=== PATIENT | female | born 1950 | race Caucasian/White ===

== ENCOUNTER 2020-11-01 12:57 | Outpatient (REF) | payer MEDICARE, SELFPAY ==
--- NOTE | 2020-11-01 | MM_ITS ---
EXAMINATION: MM SCREENING DIGITAL BREAST TOMOSYNTHESIS, BILATERAL CLINICAL INFORMATION: Screening. Asymptomatic. The lifetime risk of breast cancer based on the Tyrer-Cuzick Model is 8%. COMPARISON: Mammography: 10/26/2019, 07/06/2018, 03/24/2017, 02/21/2016 TECHNIQUE: Digital breast tomosynthesis is performed in both the craniocaudal and mediolateral oblique views along with computer-aided detection (CAD). Synthesized 2D images are generated from the tomosynthesis. FINDINGS: There are scattered areas of fibroglandular density (ACR BI-RADS breast composition Category b). There are no significant masses, abnormal calcifications, or other abnormalities. The bilateral prominent axillary nodes with abundant fatty amre are stable. The skin contours are smooth. No significant changes from prior studies. MM/MM tomosynthesis screening BI IMPRESSION: No significant changes from prior exams. ASSESSMENT: BI-RADS 2: Benign RECOMMENDATION: Routine annual mammography screening. This patient's information was entered into a reminder system with a target due date for their next mammogram.
== END 2020-11-01 12:58 | disposition home or self-care (01) ==
LOC: HO.MAMMO 12:57
PROVIDERS: PCP Internal Medicine; Visit Provider Internal Medicine
DX: Z12.31 Encounter for screening mammogram for malignant neoplasm of breast (principal)
CPT/HCPCS: 77063; 77067

== ENCOUNTER 2022-02-24 11:40 | Outpatient (REF) | payer MEDICARE, SELFPAY ==
--- NOTE | ~2022-02-24 | MM_ITS ---
EXAMINATION: MM SCREENING DIGITAL BREAST TOMOSYNTHESIS, BILATERAL CLINICAL INFORMATION: Screening. Asymptomatic. The lifetime risk of breast cancer based on the Tyrer-Cuzick Model is 8%. COMPARISON: Mammography: 11/01/2020, 09/26/2019, 07/06/2018 TECHNIQUE: Digital breast tomosynthesis is performed in both the craniocaudal and mediolateral oblique views along with computer-aided detection (CAD). Synthesized 2D images are generated from the tomosynthesis. FINDINGS: There are scattered areas of fibroglandular density (ACR BI-RADS breast composition Category b). There are no significant masses, abnormal calcifications, or other abnormalities. Parenchymal pattern is similar to prior studies. Small intramammary node again seen mid upper outer right breast. Bilateral axillary nodes stable. The skin contours are smooth. No significant changes. MM/MM tomosynthesis screening BI IMPRESSION: No mammographic evidence of malignancy. ASSESSMENT: BI-RADS 2: Benign RECOMMENDATION: Routine annual mammography screening. This patient's information was entered into a reminder system with a target due date for their next mammogram.
== END 2022-02-24 11:41 | disposition home or self-care (01) ==
LOC: HO.MAMMO 11:40
PROVIDERS: PCP Internal Medicine; Visit Provider Internal Medicine
DX: Z12.31 Encounter for screening mammogram for malignant neoplasm of breast (principal)
CPT/HCPCS: 77063; 77067

== ENCOUNTER 2023-06-25 15:08 | Outpatient (REF) | payer MEDICARE, SELFPAY | END 2023-06-25 15:09 | disposition home or self-care (01) | LOC: HO.MAMMO 15:08 | PROVIDERS: PCP Internal Medicine; Visit Provider Internal Medicine | DX: Z12.31 Encounter for screening mammogram for malignant neoplasm of breast (principal) | CPT/HCPCS: 77063; 77067 ==

== ENCOUNTER → 2023-06-25 15:30 | Outpatient (BNV) | payer MEDICARE, SELFPAY | PROVIDERS: PCP Internal Medicine; Visit Provider Radiology Diagnostic Radiology | DX: Z12.31 Encounter for screening mammogram for malignant neoplasm of breast (principal) | CPT/HCPCS: 77063; 77067 ==

== ENCOUNTER → 2023-07-20 10:31 | Outpatient (BNVA) | payer MEDICARE, SELFPAY | PROVIDERS: PCP Internal Medicine; Visit Provider Physician Assistant Surgical ==

== ENCOUNTER → 2023-08-18 10:56 | Outpatient (BNVA) | payer MEDICARE, SELFPAY | PROVIDERS: PCP Internal Medicine; Visit Provider Physician Assistant Surgical ==

== ENCOUNTER → 2023-08-20 08:10 | Outpatient (BNVA) | payer MEDICARE, SELFPAY | PROVIDERS: PCP Internal Medicine; Visit Provider Surgery ==

== ENCOUNTER 2023-12-14 09:19 | Day surgery (SDC) | payer MEDICARE, SELFPAY ==
[2023-12-10 13:35] VITALS: BMI 38.0
[2023-12-14 09:58] VITALS: BMI 36.9
[2023-12-14 10:06] VITALS: BP 161/87; PULSE 83; RESP 18; TEMP 36.7; O2SAT 95
[2023-12-14] MEDS: Lactated Ringers 1,000 ML 100 ML IVCONT (10:06)
--- NOTE | 2023-12-14 10:23 | MHC.SHP ---
Pre-Procedural Eval Section A - 24 Hr Update-Section A only Date of Service: 12/14/23 Section B - Complete if H&P > 30 days Chief Complaint: screening Details of Present Illness: see H&P no changes Relevant Family History (Specify if Yes): No Relevant Social History: None Present Medications: see Short Stay Collaborative assessment Medical History: No relevant PMH History of Previous Operations: No relevant previous surgery Allergies: Allergies Allergy/AdvReac Type Severity Reaction Status Date / Time No Known Allergies Allergy Verified 12/14/23 09:42 [No Known Allergies*] Review of Systems Sugical H&P ROS: Negative: Constitution, Cardiovascular, Respiratory, Neurological, Psychiatric, Hem-Onc, Allergic/Immunologic, Gastrointestinal, Genitourinary, Musculoskeletal, Integumentary, Endocrine and Eyes/Ears/Nose/Throat Exam Surgical H&P Exam: Normal: HEENT, Normal: Heart, Normal: Lungs, Normal: Extremities, Normal: Abdomen, Normal: Skin and Normal: Neurological Plan Diagnosis/Plan: Unchanged I have reviewed the history and physical and performed a pertinent physical examination on my patient. No changes have occurred unless specified. Time Spent With Patient Time: Total time managing care of this patient today ____ minutes.
[2023-12-14 10:58] VITALS: BP 111/63; PULSE 78; RESP 16; TEMP 36.5; O2SAT 97
[2023-12-14 11:13] VITALS: BP 130/72; PULSE 77; RESP 16; TEMP 36.1; O2SAT 96
--- NOTE | 2023-12-14 11:24 | OP_ITS ---
DATE OF SERVICE: 12/14/2023 SURGEON: Gabino Farooq MD INDICATIONS: Colon cancer screening. PREOPERATIVE DIAGNOSIS: POSTOPERATIVE DIAGNOSIS: PROCEDURE PERFORMED: Colonoscopy to the terminal ileum with biopsy. ESTIMATED BLOOD LOSS: COMPLICATIONS: ANESTHESIA: Monitored anesthesia care. ASSISTANTS: SPECIMENS: DESCRIPTION OF PROCEDURE: A history and physical was performed. The risks and benefits of the procedure were explained to the patient and informed consent was obtained. The patient was placed in the left lateral decubitus position. A digital rectal exam was performed and was found to be normal. The Olympus pediatric video colonoscope was introduced into the rectum and advanced to the cecum. The cecum was identified by transillumination, palpation, and identification of ileocecal valve. Examination was performed. The scope was removed. She tolerated the procedure well and was returned to the recovery area in stable condition. FINDINGS: The terminal ileum was briefly examined and appeared normal. The visualized colonic mucosa was within normal limits without evidence of masses or ulcers. A single polyp was identified and removed using a biopsy forceps. The polyp measured less than 5 mm and was located at 60 cm. No other polyps were seen. Retroflexed examination showed internal hemorrhoids. The quality of the prep was good. IMPRESSION: Colon polyp. RECOMMENDATION: Follow up the biopsy results. MD DAWOOD Wallace/HUBERTL / [id number]
== END 2023-12-14 11:49 | disposition home or self-care (01) ==
PROVIDERS: PCP Internal Medicine; Visit Provider Internal Medicine Gastroenterology
PROC: 0DJD8ZZ Inspection of Lower Intestinal Tract, Via Natural or Artificial Opening Endoscopic (ICD-10-PCS; CPT 45378; principal; 2023-12-14 10:50)
DX: Z12.11 Encounter for screening for malignant neoplasm of colon (principal); Z83.719 Family history of colon polyps, unspecified; D12.4 Benign neoplasm of descending colon; K64.8 Other hemorrhoids; I10 Essential (primary) hypertension; E78.5 Hyperlipidemia, unspecified; F41.9 Anxiety disorder, unspecified; Z79.82 Long term (current) use of aspirin; Z79.899 Other long term (current) drug therapy
CPT/HCPCS: 45380; 88305; J2704

== ENCOUNTER 2024-03-01 11:18 | Outpatient (REF) | payer MEDICARE, SELFPAY ==
--- NOTE | ~2024-03-01 | MM_ITS ---
EXAMINATION: BONE DENSITOMETRY CLINICAL INDICATION: Asymptomatic menopausal state. COMPARISON: Previous BD dated 12/05/2015 and baseline BD dated 09/14/2007. TECHNIQUE: Using a Trudev DXA System (software version: 13.1) manufactured by [employer], dual-energy x-ray absorptiometry was performed of the lumbar spine and left hip. The images are of good technical quality. Summary results are attached. FINDINGS: LEFT FEMUR, NECK: Current: BMD 0.985 g/cm2, Z-score 1.0, T-score -0.4, normal. Prior: BMD 0.953 g/cm2. Baseline: BMD 0.981 g/cm2. LEFT FEMUR, TOTAL: Current: BMD 1.037 g/cm2, Z-score 1.4, T-score 0.2, normal, 5.1% increase from previous, 2.4% decrease from baseline (<5% change is not significant). Prior: BMD 0.987 g/cm2. Baseline: BMD 1.062 g/cm2. AP SPINE L1-L4: Current: BMD 1.312 g/cm2, Z-score 2.2, T-score 1.1, normal, 7.5% increase from previous, 12.2% increase from baseline (<5% change is not significant). Prior: BMD 1.221 g/cm2. Baseline: BMD 1.169 g/cm2. IDENTIFIED RISK FACTORS: Menopause, history of fracture (adult). HISTORY OF FRACTURE: Other. Forearm, humerus, wrist. MEDICATIONS: Vitamin D. MM/XR DEXA axial skeleton IMPRESSION: 1. DIAGNOSIS: Normal bone density based on the lowest T-score value of -0.4 in the femoral neck applying World Health Organization criteria. 2. 10-YEAR FRACTURE RISK PREDICTION, FRAX: According to the guidelines, FRAX calculation should only be performed on patients in the osteopenia bone density category. Therefore, FRAX was not performed on this patient. 3. Treatment Recommendations: NOF guidelines recommend consideration for treatment in postmenopausal women and men age 50 and older presenting with the following: -A hip or vertebral (clinical or morphometric) fracture. -T-score less than or equal to -2.5 at the femoral neck or spine after appropriate evaluation to exclude secondary causes. -Low bone mass at the hip or spine and a 10-year fracture probability by FRAX of greater than or equal to 3% for hip fracture or greater than or equal to 20% for major osteoporotic fracture based on the [place] adapted WHO algorithm. 4. Other Recommendations: All treatment decisions require clinical judgment and consideration of individual patient factors, including patient preferences, comorbidities, previous drug use, risk factors not captured in the FRAX model (e.g. frailty, falls, vitamin D deficiency, increased bone turnover, interval significant decline in bone density) and possible under or overestimation of fracture risk by FRAX. FUTURE SCAN RECOMMENDATION: People with diagnosed cases of osteoporosis or at high risk for fracture should have regular bone mineral density tests. For patients eligible for Medicare, routine testing is allowed once every 2 years. The testing frequency can be increased to one year for patients who have rapidly progressing disease, those who are receiving or discontinuing medical therapy to restore bone mass, or have additional risk factors.
== END 2024-03-01 11:19 | disposition home or self-care (01) ==
LOC: HO.MAMMO 11:18
PROVIDERS: PCP Internal Medicine; Visit Provider Nurse Practitioner Adult Health
DX: Z13.820 Encounter for screening for osteoporosis (principal); Z78.0 Asymptomatic menopausal state
CPT/HCPCS: 77080

== ENCOUNTER 2025-01-03 12:33 | Outpatient (REF) | payer MEDICARE, SELFPAY ==
--- OUTSIDE RECORDS SUMMARY | 2025-01-03 12:51 | XMS_ITS ---
Author Organization [facility] Address [address] [place] [phone] Care Team Providers Care Water Chaser Name Role Phone Frederick Hutchins MD Primary Care Provider Gabino Hummel Jr [phone] ALLERGIES No Known Allergies REASON FOR VISIT dilated pancreatic and bile duct MEDICATIONS Medication SIG (Take, Route, Frequency, Duration) Notes Start Date End Date Status LORazepam 0.5 MG Oral for 15 as needed A ctive hydroCHLOROthiazide 25 MG Oral for 90 Active amLODIPine Besylate 5 MG Oral for 90 Active buPROPion HCl ER (XL) 150 MG Oral for 90 Active Atorvastatin Calcium 40 MG Oral for 90 Active Vitamin D 50 MCG (1999) 1 tablet Oral ly Once a day for 30 day(s) Active Aspirin 81 MG as directed Orally Active Citalopram Hydrobromide 20 MG Oral for 90 Active Losartan Potassium 50mg Active PROBLEMS Problem Type ICD Code Onset Dates Problem Status W/U Status Risk SNOMED Code Notes Problem Abnormal magnetic resonance cholangiopancreatography (MRCP) (R93.3) Active confirmed 119648403 VITAL SIGNS BMI 37.18 kg/m2 01/03/2025 Blood pressure systolic 111 mm Hg 01/03/20 25 Blood pressure diastolic 11 mm Hg 025 Height 64.5 in 01/03/2025 Weight 220 lbs 01/03/2025 Encounters Encounter Location Date Provider Diagnosis [facility] [address] [place] [phone] 01/03/2025 Gabino Farooq Jr Abnormal magnetic resonance cholangiopancreatography (MRCP) R93.3 ASSESSMENTS Encounter Date Diagnosis Assessment Notes Treatment Notes Treatment Clinical Notes 01/03/2025 Abnormal magnetic re sonance cholangiopancreatography (MRCP) (ICD-10 - R93.3) PLAN OF TREATMENT Pending Test Test Name Order Date LIVER PROFILE 01/03/2025 LIPASE 01/03/2025 CBC w/o DIFF 01/03/2025 PROTHROMBIN TIME (PT, INR) 01/03/2025 Future Test Test Name Order Date ERCP SPHINCTEROTOMY/PAPILLOTOMY 01/03/20 25 Next Appt Details Follow Up: 1 Year, Reason: Provider Name:Gabino daily , 01/23/2025 12:40:00 PM, [address] [place] [address] , [place], [place], [phone], Progress Notes * Examination Category Sub-Category Detail Notes General Examination GENERAL APPEARANCE: in no ac eli distress HEAD: normocephalic EYES: sclera non-icteric NECK/THYROID: no lymphadenopathy HEART: S1, S2 normal, no mu rmurs CHEST: normal shape and exp ansion LUNGS: clear to auscultatio n bilaterally ABDOMEN: soft, nontender, non distended, bowel sounds present, no organomegaly SKIN: anicteric EXTREMITIES: no clubbing, cyanosi s, or edema PSYCH: cognitive function i ntact ORAL CAVITY: mucosa moist
--- OUTSIDE RECORDS SUMMARY | 2025-01-03 12:52 | XMS_ITS | Patient Health Record ---
Author Organization [facility] Address [address] [place] [address] Care Team Providers Care Instructor Psychiatric Aide Name Role Phone Frederick Hutchins MD Primary Care Provider Gabino Hummel Jr Unavailable [phone] ALLERGIES No Known Allergies REASON FOR REFERRAL No Information MEDICATIONS Medication SIG (Take, Route, Frequency, Duration) Notes Start Date End Date Status Vitamin D 50 MCG (1999) 1 tablet Oral ly Once a day for 30 day(s) Active LORazepam 0.5 MG Oral for 15 as needed A ctive hydroCHLOROthiazide 25 MG Oral for 90 Active amLODIPine Besylate 5 MG Oral for 90 Active buPROPion HCl ER (XL) 150 MG Oral for 90 Active Atorvastatin Calcium 40 MG Oral for 90 Active Aspirin 81 MG as directed Orally Active Citalopram Hydrobromide 20 MG Oral for 90 Active Losartan Potassium 50mg Active IMMUNIZATIONS Vaccine Route Administration Date Status Comme nts Influenza Unknown 10/15/2023 Administered SOCIAL HISTORY Sex Assigned At : Social History Observation Description Sex Assigned At Unknown PROBLEMS Problem Type ICD Code Onset Dates Problem Status W/U Status Risk SNOMED Code Notes Problem Colon cancer screeni ng (Z12.11) Active confirmed 021643557 Problem Long-term use of asp irin therapy (Z79.82) Active confirmed 364671168 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) Active confirmed [id number] Problem Abnormal magnetic resonance cholangiopancreatography (MRCP) (R93.3) Active confirmed 936029004 VITAL SIGNS Blood pressure diastolic 11 mm Hg 01/03/2025 Height 64.5 in 01/03/2025 Blood pressure systolic 111 mm Hg 01/03/2025 Weight 220 lbs 01/03/2025 BMI 37.18 kg/m2 01/03/2025 Encounters Encounter Location Date Provider Diagnosis [facility] [address] [place] [address] 01/03/2025 Gabino Farooq Jr Abnormal magnetic resonance cholangiopancreatography (MRCP) R93.3 [facility] [address] [place] [address] 12/19/2024 Gabino Farooq Jr ASSESSMENTS Encounter Date Diagnosis Assessment Notes Treatment Notes Treatment Clinical Notes 01/03/2025 Abnormal magnetic re sonance cholangiopancreatography (MRCP) (ICD-10 - R93.3) PLAN OF TREATMENT Pending Test Test Name Order Date LIVER PROFILE 01/03/2025 LIPASE 01/03/2025 CBC w/o DIFF 01/03/2025 PROTHROMBIN TIME (PT, INR) 01/03/2025 Future Test Test Name Order Date COLONOSCOPY 12/09/2012 COLONOSCOPY 11/01/2023 ERCP SPHINCTEROTOMY/PAPILLOTOMY 01/03/20 Next Appt Details Provider Name:Gabino daily Jr, 01/23/2025 12:40:00 PM, [address] [facility] , [place], [place], [phone], Insurance Providers Payer Name Payer Address Payer Phone Subscriber Number Group Number Insured Name Patient Relationship to Insured Coverage Start Date Coverage End Date [facility] [address] [place] [phone] [id number] BILLIE YAN Self - patient is the insured MEDICAL (GENERAL) HISTORY Medical History History ICD Code Colonoscopy 12/08, tubular adenoma, follo wup p.r.n. Hyperlipidemia Hypertension Elevated BMI Anxiety Surgical History Surgery Date(Month/Year) section Repair of arm fracture
--- OUTSIDE RECORDS SUMMARY | 2025-01-03 12:52 | XMS_ITS ---
Author Organization [facility] Address [address] [place] [address] Care Team Providers Care Hazardous Materials Analyst Name Role Phone Frederick Hutchins MD Primary Care Provider Gabino Hummel Jr [phone] REASON FOR VISIT appt Encounters Encounter Location Date Provider Diagnosis [facility] [address] [place] [phone] 12/19/2024 Gabino Farooq Jr PLAN OF TREATMENT Next Appt Details Provider Name:Gabino daily Jr, 01/23/2025 12:40:00 PM, [address] [place] [address] , [place], [place], [phone],
--- OUTSIDE RECORDS SUMMARY | 2025-01-03 12:52 | XMS_ITS ---
Author Organization [facility] Address [address] [place] [address] Care Team Providers Care Pony Edger Name Role Phone Frederick Hutchins MD Primary Care Provider Gabino Hummel Jr [phone] REASON FOR VISIT pathology Encounters Encounter Location Date Provider Diagnosis [facility] [address] [place] [phone] 12/23/2023 Gabino Farooq Jr PLAN OF TREATMENT Next Appt Details Provider Name:Gabino daily Jr, 01/23/2025 12:40:00 PM, [address] [place] [address] , [place], [place], [phone],
[2025-01-03 13:50] LABS: Hematocrit 37.2 % (37.0-47.0); Hemoglobin 12.7 g/dl (12.0-16.0); Mean Corpuscular HGB Conc 34.1 g/dl (31.0-35.0); Mean Corpuscular Volume 99.5 fL (80.0-98.0); Mean Platelet Volume 10.4 fL (9.4-12.3); Platelet Count 247 X10*3/uL (160-400); Red Blood Count 3.74 X10*6/uL (4.20-5.50); Red Cell Distribution Width 12.2 % (11.0-16.0); White Blood Count 5.2 X10*3/uL (4.8-10.8)
[2025-01-03 13:55] LABS: INTERNATIONAL NORM RATIO 0.9 (0.9-1.1); Prothrombin Time 10.9 SEC (10.9-12.4)
[2025-01-03 14:32] LABS: Alanine Aminotransferase 32 U/L (0-31); Albumin Level 4.2 g/dL (3.5-5.0); Alkaline Phosphatase 62 U/L (39-117); Aspartate Amino Transferase 26 U/L (5-31); Bilirubin Total 0.5 mg/dL (0.0-1.0); Lipase 34 U/L (8-78); Total Protein 7.5 g/dL (6.5-8.0)
[2025-01-03 14:33] LABS: Bilirubin Direct 0.1 mg/dL (0.0-0.5)
== END 2025-01-03 12:34 | disposition home or self-care (01) ==
LOC: HO.LAB 12:33
PROVIDERS: PCP Internal Medicine; Visit Provider Internal Medicine Gastroenterology
DX: R93.3 Abnormal findings on diagnostic imaging of other parts of digestive tract (principal)
CPT/HCPCS: 36415; 80076; 83690; 85027; 85610

== ENCOUNTER 2025-01-23 09:56 | Day surgery (SDC) | payer MEDICARE, SELFPAY ==
--- OUTSIDE RECORDS SUMMARY | 2025-01-11 16:51 | XMS_ITS | Patient Health Record ---
Author Organization [facility] Address [address] [place] [address] Care Team Providers Care Photoengraving Sketch Maker Name Role Phone Frederick Hutchins MD Primary Care Provider Gabino Hummel Jr Unavailable [phone] ALLERGIES No Known Allergies RESULTS Component Value Reference Range Notes Complete Blood Count no Diff Reviewed date:01/04/2025 09:49:41 AM Interpretation: Performing Lab:[facility], [address] [place] [id number] Notes/Report: White Blood Count 5.2 4.8-10.8 X10*3/uL Red Blood Count 3.74 4.20-5.50 X10*6/uL Hemoglobin 12.7 12.0-16.0 g/dl Hematocrit 37.2 37.0-47.0 % Mean Corpuscular Volume 99.5 80.0-98.0 fL Mean Corpuscular Hemoglobin 34.0 27.0-33.0 pg Mean Corpuscular HGB Conc 34.1 31.0-35.0 g/dl Red Cell Distribution Width 12.2 11.0-16.0 % Platelet Count 247 160-400 X10*3/uL Mean Platelet Volume 10.4 9.4-12.3 fL NRBC Pct Auto 0.0 0.0-0.2 /100WBC NRBC Abs Auto 0.000 0.0-0.012 X10*3/uL Prothrombin Time INR Reviewed date:01/04/2025 09:49:35 AM Interpretation: Performing Lab:[address] [phone] Notes/Report: Prothrombin Time 10.9 10.9-12.4 SEC INTERNATIONAL NORM RATIO 0.9 0.9-1.1 INTERNATIONAL NORMALIZED RATIO (INR) REFERENCE RANGES Reference Range For patients not on anticoagulant therapy: 0.9 - 1.1 INR ranges for oral anticoagulant therapy: For prevention and treatment of venous thrombosis and pulmonary embolism: 2.0 - 3.0 For acute myocardial infarction with aspirin therapy: 2.0 - 3.0 For acute myocardial infarction without aspirin therapy: 3.0 - 4.0 For patients with mechanical prosthetic heart valves: 2.5 - 3.5 Liver Panel Reviewed date:01/04/2025 09:49:29 AM Interpretation: Performing Lab:[address] [id number] Notes/Report: Bilirubin Total 0.5 0.0-1.0 mg/dL Bilirubin Direct 0.1 0.0-0.5 mg/dL Aspartate Amino Transferase 26 5-31 U/L Alanine Aminotransferase 32 0-31 U/L Total Protein 7.5 6.5-8.0 g/dL Albumin Level 4.2 3.5-5.0 g/dL Alkaline Phosphatase 62 39-117 U/L Lipase Reviewed date:01/04/2025 09:49:20 AM Interpretation: Performing Lab:[facility], [address] [place] [phone] Notes/Report: Lipase 34 8-78 U/L REASON FOR REFERRAL No Information MEDICATIONS Medication [...] Colon cancer screeni ng (Z12.11) Active confirmed 653546800 Problem Long-term use of asp irin therapy (Z79.82) Active confirmed 589310110 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 (Z79.899) Active confirmed [id number] Problem Abnormal magnetic resonance cholangiopancreatography (MRCP) (R93.3) Active confirmed 298618301 VITAL SIGNS Blood pressure diastolic 11 mm Hg 01/03/2025 Height 64.5 in 01/03/2025 Blood pressure systolic 111 mm Hg 01/03/2025 Weight 220 lbs 01/03/2025 BMI 37.18 kg/m2 01/03/2025 Encounters Encounter Location Date Provider Diagnosis [facility] [address] [place] [phone] 01/03/2025 Gabino Farooq Jr Abnormal magnetic resonance cholangiopancreatography (MRCP) R93.3 [facility] [address] [place] [phone] 12/19/2024 Gabino Farooq Jr [facility] [address] [place] [phone] 01/04/2025 Gabino Farooq Jr ASSESSMENTS Encounter Date Diagnosis [...] Provider Name:Gabino daily Jr, 01/23/2025 12:40:00 PM, [address] [place] [address] , [place], [place], [phone], Insurance Providers Payer Name Payer Address Payer Phone Subscriber Number Group Number Insured Name Patient Relationship to Insured Coverage Start Date Coverage End Date [facility] [address] [place] [phone] [id number] BILLIE YAN Self - patient is the insured MEDICAL (GENERAL) HISTORY Medical History History ICD Code Colonoscopy 12/08, tubular adenoma, follo vasilep p.r.n. Hyperlipidemia Hypertension Elevated BMI Anxiety Surgical History Surgery Date(Month/Year) section Repair of arm fracture
--- OUTSIDE RECORDS SUMMARY | 2025-01-11 16:51 | XMS_ITS ---
Author Organization [facility] Address [address] [place] [address] Care Team Providers Care Manager Of Employee Relations Name Role Phone Frederick Hutchins MD Primary Care Provider Gabino Hummel Jr [phone] REASON FOR VISIT appt Encounters Encounter Location Date Provider Diagnosis [facility] [address] [place] [phone] 12/19/2024 Gabino Farooq Jr PLAN OF TREATMENT Next Appt Details Provider Name:Gabino daily Jr, 01/23/2025 12:40:00 PM, [address] [place] [address] , [place], [place], [phone],
--- OUTSIDE RECORDS SUMMARY | 2025-01-11 16:51 | XMS_ITS ---
Author Organization [facility] Address [address] [place] [address] Care Team Providers Care State Historical Society Director Name Role Phone Frederick Hutchins MD Primary Care Provider Gabino Hummel Jr ALLERGIES No Known Allergies REASON FOR VISIT [...] magnetic resonance cholangiopancreatography (MRCP) (R93.3) Active confirmed 876961166 VITAL SIGNS Blood pressure systolic 111 mm Hg 01/03/20 25 Blood pressure diastolic 11 mm Hg 025 Height 64.5 in 01/03/2025 Weight 220 lbs 01/03/2025 BMI 37.18 kg/m2 01/03/2025 Encounters Encounter Location Date Provider Diagnosis [facility] [address] [place] [phone] 01/03/2025 Gabino Farooq Jr Abnormal magnetic resonance [...] Name:Gabino daily , 01/23/2025 12:40:00 PM, [address] [place] [address] , [place], [place], [phone], Progress Notes * Examination Category Sub-Category Detail [...]
--- OUTSIDE RECORDS SUMMARY | 2025-01-11 16:51 | XMS_ITS ---
Author Organization [facility] Address [address] [place] [address] Care Team Providers Care Cantilever Crane Operator Name Role Phone Frederick Hutchins MD Primary Care Provider Gabino Hummel Jr [phone] REASON FOR VISIT labs Encounters Encounter Location Date Provider Diagnosis [facility] [address] [place] [phone] 01/04/2025 Gabino Farooq Jr PLAN OF TREATMENT Next Appt Details Provider Name:Gabino daily Jr, 01/23/2025 12:40:00 PM, [address] [place] [address] , [place], [place], [phone],
[2025-01-19 10:54] VITALS: BMI 37.2
--- NOTE | 2025-01-22 08:51 | P.CONAN_ITS ---
Documented by User: Deepa Silverio NP 01/22/25 08:52 HPI - Anesthesia Eval Consult details Narrative: 74yo F for ERCP s/p colo 11/2024 with TIVA Anesthesia Pre-Procedure Meds Is the patient on any of the following meds?: GLP1/DPP4 PMFSH Active Problems Active Problems: All Active Problems Candidiasis (Acute) Past Medical History Medical History Anxiety Overweight Elevated cholesterol HTN (hypertension) Family History Family History Father Basal cell carcinoma (BCC) in situ of skin Mother Basal cell carcinoma (BCC) in situ of skin Surgical History Surgical History Hx of blepharoplasty H/O colonoscopy History of surgery on arm Hx of section Social History Social History Patient Tobacco Use Status: Never used Tobacco Use of substances other than those prescribed or required for medical reasons: No Are you DNR?: No Advance Directives: No Advance Directives Information Provided: Yes Meds Allergies Allergy/AdvReac Type Severity Reaction Status Date / Time No Known Allergies Allergy Verified 12/14/23 09:42 [No Known Allergies*] Home Medications ?Medication ?Instructions ?Recorded ?Confirmed ?Last Taken ?Type amlodipine 5 mg tablet 5 mg PO DAILY 02/11/23 01/23/25 12/14/23 History citalopram 30 mg capsule 30 mg PO DAILY 02/11/23 01/23/25 Unknown History hydrochlorothiazide 25 mg tablet 25 mg PO DAILY 12/10/23 01/23/25 Unknown History irbesartan 300 mg tablet 300 mg PO DAILY 12/10/23 01/23/25 Unknown History lorazepam 0.5 mg tablet 0.5 mg PO BID PRN Anxiety 12/10/23 01/23/25 01/23/25 History aspirin 81 mg tablet,delayed 81 mg PO DAILY 01/19/25 01/23/25 01/09/25 History release atorvastatin 20 mg tablet 20 mg PO DAILY 01/19/25 01/23/25 Unknown History cholecalciferol (vitamin D3) 50 50 mcg PO DAILY 01/19/25 01/23/25 Unknown History mcg (2,000 unit) capsule (Vitamin D3) Exam Height,Weight and Vital Signs: Height 5 ft 4.5 in Weight 99.79 kg Assessment and Plan Assessment Anesthesia Assessment: Chart Reviewed Documented by User: Georgina Keen MD 01/23/25 10:58 [facility] Past Medical History Medical History Anxiety Overweight Elevated cholesterol HTN (hypertension) Family History Family History Father Basal cell carcinoma (BCC) in situ of skin Mother Basal cell carcinoma (BCC) in situ of skin Surgical History Surgical History Hx of blepharoplasty H/O colonoscopy History of surgery on arm Hx of section History of Problems with Anesthesia: No Social History Social History Patient Tobacco Use Status: Never used Tobacco Use of substances other than those prescribed or required for medical reasons: No Are you DNR?: No Advance Directives: No Advance Directives Information Provided: Yes Meds Allergies Allergy/AdvReac Type Severity Reaction Status Date / Time No Known Allergies Allergy Verified 12/14/23 09:42 [No Known Allergies*] Home Medications ?Medication ?Instructions ?Recorded ?Confirmed ?Last Taken ?Type amlodipine 5 mg tablet 5 mg PO DAILY 02/11/23 01/23/25 12/14/23 History citalopram 30 mg capsule 30 mg PO DAILY 02/11/23 01/23/25 Unknown History hydrochlorothiazide 25 mg tablet 25 mg PO DAILY 12/10/23 01/23/25 Unknown History irbesartan 300 mg tablet 300 mg PO DAILY 12/10/23 01/23/25 Unknown History lorazepam 0.5 mg tablet 0.5 mg PO BID PRN Anxiety 12/10/23 01/23/25 01/23/25 History aspirin 81 mg tablet,delayed 81 mg PO DAILY 01/19/25 01/23/25 01/09/25 History release atorvastatin 20 mg tablet 20 mg PO DAILY 01/19/25 01/23/25 Unknown History cholecalciferol (vitamin D3) 50 50 mcg PO DAILY 01/19/25 01/23/25 Unknown History mcg (2,000 unit) capsule (Vitamin D3) Exam Airway Mallampati Class: III TM Dist: >3cm Neck ROM: Full Loose/Missing/Broken Teeth: No Heart: RRR Lungs: CTA Assessment and Plan Assessment Anesthesia Assessment: Anesthesia Plan Discussed Final Anesthetic Review History of Problems with Anesthesia: No NPO: Yes ASA Class: II Final Preanesthetic Review: Meds/Allgs Chart Reviewed, Consent Obtained/Reviewed and Anes Risks/Benef Reviewed Patient Risk: Low Procedure Risk: Low Anesthetic Plan Anesthetic Plan: GA Disposition: Standard PACU
[2025-01-23] VITALS (7 sets, daily range): BP systolic 142–148; BP diastolic 76–82; PULSE 73–85; RESP 14–18; TEMP 36.3–36.9; O2SAT 94–100; BMI 31.3
--- NOTE | ~2025-01-23 | FL_ITS ---
EXAMINATION: FL GUIDANCE ONLY HISTORY: ERCP COMPARISON: None available. TECHNIQUE: Fluoroscopy time: 7.5 minutes. Cumulative Dose: 132 mGy. DAP: 2.29 mGym2 Images: 7. FINDINGS: Images demonstrate opacification of the common bile duct which is dilated, and intrahepatic biliary radicles. No definite intraluminal filling defects are identified, although the distal common bile duct is poorly opacified. FL/FL guidance in OR IMPRESSION: Fluoroscopy during procedure. Please see procedure report for additional information. Electronically signed by: Shree Cárdenas MD 01/23/2025 12:55 PM EDT
--- NOTE | 2025-01-23 11:09 | MHC.SHP ---
Pre-Procedural Eval Section A - 24 Hr Update-Section A only Date of Service: 01/23/25 The patient is an INPATIENT: No Changes since office visit: No Cold of Flu in the past 2 weeks, No New Medical Problems, No Changes in Medication and No Patient answered all questions The patient has been examined within 24 hours of the surgical procedure. The History & Physical has been completed within 30 days and I have reviewed it.: Yes Section B - Complete if H&P > 30 days Chief Complaint: Abnormal findings on diagnostic imaging of other p Allergies: Allergies Allergy/AdvReac Type Severity Reaction Status Date / Time No Known Allergies Allergy Verified 12/14/23 09:42 [No Known Allergies*] Plan I have reviewed the history and physical and performed a pertinent physical examination on my patient. No changes have occurred unless specified. Time Spent With Patient Time: Total time managing care of this patient today ____ minutes.
--- NOTE | 2025-01-23 12:26 | PM.OP ---
Brief Operative Note Date of Service: 01/16/25 Pre-op diagnosis: abnl mri Post-op diagnosis: other (normal ERCP) Procedure: ERCP Surgeon: Gabino Farooq MD Anesthesia: GETA Was an Anthropology And Archeology Instructor used for this Procedure?: No Estimated blood loss (mL): 2 Pathology: other Condition: stable Disposition: PACU
--- NOTE | 2025-01-23 13:23 | OP_ITS ---
DATE OF SERVICE: 01/23/2025 SURGEON: Gabino Farooq MD INDICATIONS: Abnormal MRI showing dilation of biliary and pancreatic ductal systems. PREOPERATIVE DIAGNOSIS: POSTOPERATIVE DIAGNOSIS: PROCEDURE PERFORMED: Endoscopic retrograde cholangiopancreatography with sphincterotomy and cytology brushings. ESTIMATED BLOOD LOSS: COMPLICATIONS: ANESTHESIA: Medications; monitored general anesthesia. ASSISTANTS: SPECIMENS: DESCRIPTION OF PROCEDURE: A history and physical performed. The risks and benefits of procedure were explained to patient. Informed consent was obtained. The patient was placed in the prone position with a wedge under the right shoulder. The Olympus therapeutic duodenoscope was introduced into the esophagus, stomach, and duodenum. Examination was performed. The scope was removed. She tolerated the procedure well and was turned to recovery area in stable condition. FINDINGS: Endoscopy: Limited examination of the esophagus, stomach, and duodenum was within normal limits. The major papilla appeared normal. The common bile duct was accessed with a guidewire, passed through the sphincterotome and cholangiography showed dilation of the common bile duct to approximately 13 mm consistent with the findings on the MRI. No distal stricture was identified. No obstruction was seen. A sphincterotomy was made to approximately 7 mm with no immediate complications. A balloon was used to sweep the duct multiple times with no stones or debris being extracted. Next, a cytology brush was passed into the common bile duct and distal common bile duct brushings were obtained. No pancreatogram was obtained. The guide wire did appear to enter the pancreatic duct several times fluoroscopically. IMPRESSION: Normal endoscopic retrograde cholangiopancreatography. RECOMMENDATIONS: 1. Follow up the brushing results. 2. Consider further evaluation with repeat MRI and possible endoscopic ultrasound pending her clinical course and cytology results. MD DAWOOD Wallace/LIZZIE / [id number] GIFTY
== END 2025-01-23 13:35 | disposition home or self-care (01) ==
PROVIDERS: PCP Internal Medicine; Visit Provider Internal Medicine Gastroenterology
PROC: (CPT 43260; principal; 2025-01-23 11:30)
DX: K83.8 Other specified diseases of biliary tract (principal); I10 Essential (primary) hypertension; E78.5 Hyperlipidemia, unspecified; F41.9 Anxiety disorder, unspecified; Z79.82 Long term (current) use of aspirin; Z79.899 Other long term (current) drug therapy; Z98.890 Other specified postprocedural states
CPT/HCPCS: 43262; 88112; 88305; J0696; J1610; J1956; J2003; J2704; J3010; Q9967

== ENCOUNTER 2025-03-26 12:42 | Outpatient (REF) | payer MEDICARE, SELFPAY ==
--- OUTSIDE RECORDS SUMMARY | 2025-03-26 13:03 | XMS_ITS ---
Author Organization [facility] Address [address] [place] [address] Care Team Providers Care Pourer Metal Name Role Phone Cuong CHERRY, Frederick Primary Care Provider Gabino Hummel Jr REASON FOR VISIT abnormal MRCP Encounters Encounter Location Date Provider Diagnosis [facility] [place] Outpatient [address], [place] [phone] 01/23/2025 Gabino Farooq Jr Abn findings-GI tract R93.3 Assessments Encounter Date Diagnosis (ICD Code) Assessment Notes Treatment Notes Treatment Clinical Notes Section Notes 01/23/2025 Abn findings-GI tract (ICD-10 - R93.3) Plan Of Treatment No Information Progress Notes * YANPATSY FriasEDOB:1950 (74 yo F)Acc No.[id number]:01/23/2025 Progress Notes Patient:?PATSY YANE Provider:?Gabino Farooq MD :1950???Age:74 Y???Sex:Female D ate:01/23/2025 Address:[address] [place] [address], [facility] Pcp:Frederick Hutchins MD Subjective: * Chief Complaints: * ???1. abnormal MRCP. * Medical History:? Objective: * Vitals:? Assessment: * Assessment: 1.?Abn findings-GI tract - R 93.3 (Primary)??? Plan: * Treatment: * Procedure Codes:?07482 ENDO CHOLANGIOPANCREATOGRAPH * * The named appointment provid er may or may not be the originator of this progress note, and it is not deemed complete until electronically signed by the appointment provider. Sign off status: Pending * Provider:?Gabino Farooq MD Date:?0 01/23/2025 Generated for Milton keller/Alexis/Jacqueline on:?03/26/2025 01:02 PM EDT
--- OUTSIDE RECORDS SUMMARY | 2025-03-26 13:03 | XMS_ITS ---
Author Organization [facility] Address [address] [place] [phone] Care Team Providers Care Customer Service Associate Name Role Phone Frederick Hutchins MD Primary Care Provider Gabino Hummel Jr REASON FOR VISIT Pathology Encounters Encounter Location Date Provider Diagnosis [facility] [address] [place] [phone] 01/30/2025 Gabino Farooq Jr Abnormal magnetic resonance cholangiopancreatography (MRCP) R93.3 Assessments Encounter Date Diagnosis (ICD Code) Assessment Notes Treatment Notes Treatment Clinical Notes Section Notes 01/30/2025 Abnormal magnetic re sonance cholangiopancreatography (MRCP) (ICD-10 - R93.3) Plan Of Treatment Pending Test Test Name Order Date MRI ABD W&WO CONTRAST 01/30/2025 Progress Notes * VALERIA YANOB:1950 (74 yo F)Acc No.[id number]:01/30/2025 Patient:?FARRAHSHITALBILLIE :1950???Age:74 Y???Sex:Female Address:[address] [place] [address] Subjective: * Chief Complaints: * ???Pathology * Medical History:? * Surgical History:? * Hospitalization/Major Diagno stic Procedure:? * Medications:? Objective: * Vitals:? * Physical Examination:? Assessment: * Assessment: 1.?Abnormal magnetic resonan ce cholangiopancreatography (MRCP) - R93.3 (Primary)??? Plan: * Treatment: * Procedure Codes:? * true * Date:? Generated for Milton keller/Alexis/Jacqueline on:?03/26/2025 01:03 PM EDT
--- OUTSIDE RECORDS SUMMARY | 2025-03-26 13:03 | XMS_ITS ---
Author Organization [facility] Address [address] [place] [phone] Care Team Providers Care Banquet Houseperson Name Role Phone Frederick Hutchins MD Primary Care Provider Gabino Hummel Jr REASON FOR VISIT labs Encounters Encounter Location Date Provider Diagnosis [facility] [address] [place] [phone] 01/04/2025 Gabino Farooq Jr Plan Of Treatment No Information Progress Notes * VALERIA YANOB:1950 (74 yo F)Acc No.[id number]:01/04/2025 Patient:?YANBILLIE Frias :1950???Age:74 Y???Sex:Female Address:[address] [place] [address] * true * Date:? Generated for Printi ng/Alexis/eTransmitting on:?03/26/2025 01:03 PM EDT
--- OUTSIDE RECORDS SUMMARY | 2025-03-26 13:03 | XMS_ITS | Patient Health Record ---
Author Organization [facility] Address [address] [place] [address] Care Team Providers Care Insights Manager Name Role Phone Frederick Hutchins MD Primary Care Provider Gabino Hummel Jr Unavailable Allergies No Known Allergies Results Component Value Reference Range Notes Complete Blood Count no Diff Reviewed date:01/04/2025 09:49:41 AM Interpretation: Performing Lab:[facility], [address] [place] [phone] Notes/Report: White Blood Count 5.2 4.8-10.8 X10*3/uL [...] INR Reviewed date:01/04/2025 09:49:35 AM Interpretation: Performing Lab:[address] [phone] Notes/Report: Prothrombin Time 10.9 10.9-12.4 [employer] [...] Panel Reviewed date:01/04/2025 09:49:29 AM Interpretation: Performing Lab:[facility], [address] [place] [phone] Notes/Report: Bilirubin Total 0.5 0.0-1.0 mg/dL Bilirubin Direct 0.1 0.0-0.5 mg/dL Aspartate Amino Transferase 26 5-31 U/L Alanine Aminotransferase 32 0-31 U/L Total Protein 7.5 6.5-8.0 g/dL Albumin Level 4.2 3.5-5.0 g/dL Alkaline Phosphatase 62 39-117 U/L Lipase Reviewed date:01/04/2025 09:49:20 AM Interpretation: Performing Lab:[facility], [address] [place] [phone] Notes/Report: Lipase 34 8-78 U/L Pathology Reviewed date:01/30/2025 02:19:09 PM Interpretation: Performing Lab:[facility], [address] [place] [phone] Notes/Report: --- Name: Billie Yan Age/Sex: 74/F : 1950 [id number]#: [id number] Attend Dr: Gabino Farooq MD Re01/23/25 Status : [facility] Location: SANKET Disch: --- SPEC : [id number] RECD : 01/24/25 STATUS: JUSTO RILEY NUM: [id number] ROMINA: 01/23/25-[address]: Gabino Farooq MD ENTERED: 01/24/25 39 SP TYPE: Cytology OTHR DR: Frederick Hutchins MD ORDERED: Cell Block, Cyto-enhanced Diagnosis Distal common bile duct, brushing (cytology and cell block): Negative for malignant cells. Comment: Examination of monolayer preparation and cell block slides show benign epithelium with regu lar bland columnar cells with round to oval nuclei, moderate to abundant cytoplasm, and focal goblet cells. There is focal inflammation and focal reactive changes. Clinical History Abnormal findings on diagnostic imaging, normal ERCP Material Received Distal common bile d uct brushings Gross Description Received is 35 cc of Sebec fluid from which a ThinPrep slide and cell block are prepared. Copies To: Frederick Hutchins MD [address] [address] Gabino Farooq MD [address] [place] [address] --- Signed (signature on file) Blanca Calloway 01/25/25 1227 --- END OF REPORT FL guidance in OR Reviewed date:01/23/2025 02:56:16 PM Interpretation: Performing Lab: Notes/Report: [address] [address] Fluoroscopy Report Signed Patient: Billie Yan MR#: [id number] : 1950 Acct:[id number] Age/Sex: 74 / F ADM Date: 01/23/25 Loc: [facility] Attending Dr: Gabino Farooq MD Ordering Physician: Gabino Farooq MD Date of Service: 01/23/25 Procedure(s): FL guidance in OR Accession Number(s): [id number] cc: Frederick Hutchins MD; Gabino Farooq MD EXAMINATION: FL GUIDANCE ONLY HISTORY: ERCP COMPARISON: None available. TECHNIQUE: Fluoroscopy time: 7.5 minutes. Cumulative Dose: 132 mGy. DAP: 2.29 mGym2 Images: 7. FINDINGS: Images demonstrate opacification of the common bile duct which is dilated, and intrahepatic biliary radicles. No definite intraluminal filling defects are identified, although the distal common bile duct is poorly opacified. FL/FL guidance in OR IMPRESSION: Fluoroscopy during procedure. Please see procedure report for additional information. Electronically signed by: Shree Cárdenas MD 01/23/2025 12:55 PM EDT Dictated By: Shree Cárdenas MD Signed By: <Electronically signed by Shree Cárdenas MD in OV> 01/23/25 1255 DD/ 1125 TD/TT: 01/23/25 1230 Phlebotomy Support Tech: [address] [address] Fluoroscopy Report Signed Patient: Lavonne Yan MR#: [id number] : 1950 Acct:[id number] Age/Sex: 74 / F ADM Date: 01/23/25 Loc: [facility] Attending Dr: Joby Farooq MD Ordering Physician: Gabino Farooq MD Date of Service: 01/23/25 Procedure(s): FL guidance in OR Accession Number(s): [id number] cc: Frederick Hutchins MD ; Gabino Farooq MD EXAMINATION: FL GUIDANCE ONLY HISTORY: ERCP COMPARISON: None available. TECHNIQUE: Fluoroscopy time: 7. 5 minutes. Cumulative Dose: 132 mGy. DAP: 2.29 mGym2 Images: 7. FINDINGS: Images demonstrate opacification of the common bile duct which is dilated, and intrahepatic biliary radicles. No definite intraluminal filling defects are identified, although the distal common bile duct is poorly opacified. FL/FL guidance in OR IMPRESSION: Fluoroscopy during procedure. Please see procedure report for additional information. Electronically sami d by: Shree Cárdenas MD 01/23/2025 12:55 PM EDT Dictated By: Shree Cárdenas MD Signed By: <Electronically signed by Shree Cárdenas MD in OV> 01/23/25 1255 DD/ 1125 TD/TT: 01/23/25 1230 Phlebotomy Support Tech: Reason For Referral No Information Medications Medication SIG (Take, Route, Frequency, Duration) Notes [...] for 90 Active Losartan Potassium 50mg Active Immunizations Vaccine Route Administration Date Status Comme nts Influenza Unknown 10/15/2023 Administered Problems Problem Type SNOMED Code ICD Code Onset Dates Problem Status W/U Status Risk Notes Problem 277392265 Colon cancer scr eening (Z12.11) Active confirmed Problem 233462715 Long-term use of aspirin therapy (Z79.82) Active confirmed Problem 97970565755447546 terminal carman curr ent use of diuretic (Z79.899) Active confirmed Problem 493362652 Abnormal magneti c resonance cholangiopancreatography (MRCP) (R93.3) Active confirmed Vital Signs Blood pressure diastolic 11 mm Hg 01/03/2025 Height 64.5 in 01/03/2025 Blood pressure systolic 111 mm Hg 01/03/2025 Weight 220 lbs 01/03/2025 BMI 37.18 kg/m2 01/03/2025 Encounters Encounter Location Date Provider Diagnosis [facility] Outpatient [address] [place] [phone] 01/23/2025 Gabino Farooq Jr Abn findings-GI tract R93.3 [facility] [address] [place] [phone] 01/03/2025 Gabino Farooq Jr Abnormal magnetic resonance cholangiopancreatography (MRCP) R93.3 [facility] [address] [place] [phone] 12/19/2024 Gabino Farooq Jr [facility] [address] [place] [phone] 01/04/2025 Gabino Farooq Jr [facility] [address] [place] [phone] 01/30/2025 Gabino Farooq Jr Abnormal magnetic resonance cholangiopancreatography (MRCP) R93.3 Assessments Encounter Date Diagnosis (ICD Code) Assessment Notes Treatment Notes Treatment Clinical Notes Section Notes 01/23/2025 Abn findings-GI trac t (ICD-10 - R93.3) 01/03/2025 Abnormal magnetic resonance cholangiopancreatography (MRCP) (ICD-10 - R93.3) We discu ssed her findings on the imaging studies today. We discussed her laboratory studies. Her normal liver function tests make the likelihood of a significant lesion lower. We discussed simple observation and repeating MR imaging short-term versus proceeding with ERCP and possible sphincterotomy with brushings depending on the findings. She would like to proceed with ERCP. We discussed risks and benefits of the procedure in detail today including pancreatitis. She understands these and agrees to proceed. She is advised to stop aspirin one week before the procedure. Today's visit was 30 minutes 01/30/2025 Abnormal magnetic resonance cholangiopancreatography (MRCP) (ICD-10 - R93.3) Plan Of Treatment Pending Test Test Name Order Date LIVER PROFILE 01/03/2025 LIPASE 01/03/2025 CBC w/o DIFF 01/03/2025 PROTHROMBIN TIME (PT, INR) 01/03/2025 MRI ABD W&WO CONTRAST 01/30/2025 Future Test Test Name Order Date COLONOSCOPY 12/09/2012 COLONOSCOPY 11/01/2023 ERCP SPHINCTEROTOMY/PAPILLOTOMY 01/03/20 Insurance Providers Payer Name Payer Address Payer Phone Subscriber Number Group Number Insured Name Patient Relationship to Insured Coverage Start Date Coverage End Date [facility] [address] [facility] [place] [phone] [id number] BILLIE YAN Self - patient is the insured Medical (General) History Medical History History ICD Code Colonoscopy 12/08, tubular adenoma, iwonao elvis p.r.n. Hyperlipidemia Hypertension Elevated BMI Anxiety Surgical History Surgery Date(Month/Year) section Repair of arm fracture
== END 2025-03-26 12:43 | disposition home or self-care (01) ==
LOC: HO.MAMMO 12:42
PROVIDERS: PCP Internal Medicine; Visit Provider Internal Medicine
DX: Z12.31 Encounter for screening mammogram for malignant neoplasm of breast (principal)
CPT/HCPCS: 77063; 77067

== ENCOUNTER → 2025-03-26 12:45 | Outpatient (BNV) | payer MEDICARE, SELFPAY | PROVIDERS: PCP Internal Medicine; Visit Provider Internal Medicine | DX: Z12.31 Encounter for screening mammogram for malignant neoplasm of breast (principal) | CPT/HCPCS: 77063; 77067 ==